=== PATIENT | male | born 1965 | race Caucasian/White ===

== ENCOUNTER 2017-01-10 13:21 | Day surgery (SDC) | payer OTHER ==
[2017-01-10] VITALS (10 sets, daily range): BP systolic 114–136; BP diastolic 68–86; PULSE 75–85; RESP 11–20; O2SAT 91–98
[~2017-01-10] VITALS: Ht 182.9 cm; Wt 74.1 kg
[2017-01-10] MEDS: Lactated Ringer's 1,000 ML IV SCH ×3 (05:00→18:10)
[~2017-01-10 13:21] MED LIST: Clindamycin Inj 600 MG in IV Premix 1 EACH IV SCH; HYDR-4003 PO
[2017-01-10] MEDS ORDERED: Lidocaine PF 1% 30 mL Inj ONE (13:22)
[2017-01-10] MEDS ORDERED: Ondansetron 2 mg/mL 2 mL Inj ONE (13:22)
[2017-01-10] MEDS ORDERED: Dexamethasone 4 mg/mL Inj ONE (13:22)
[2017-01-10] MEDS ORDERED: MetoCLOpramide 5 mg/mL 2 mL Inj ONE (13:22)
[2017-01-10] MEDS ORDERED: HYDROmorphone 2 mg/mL Inj ONE (13:22)
[2017-01-10] MEDS ORDERED: Propofol 10,000 mCg/mL 20 mL Inj ONE (13:22)
[2017-01-10] MEDS ORDERED: fentaNYL-PF 50 mCg/mL 2 mL Inj ONE (13:22)
[2017-01-10] MEDS ORDERED: Succinylcholine Chloride 20 mg/mL 5 mL Inj ONE (13:22)
[2017-01-10] MEDS ORDERED: Clindamycin 600 mg/50 mL D5W Premix IV ONE (14:49)
--- NOTE | 2017-01-10 16:21 | PCM.HPANE ---
Patient Data Surgeon Admitting Provider: Attending Provider:Manjinder Palomo MD Primary Care Physician:Dori Santos Other Provider:Rosa Gonzales Anesthesia Reason for Visit Right Biecps Tendon Rupture Ht/WT & BMI Height (Feet): 6 Height (Inches): 0 Weight (Kilograms): 76.5 Body Mass Index 22.00 Allergies Coded Allergies: Penicillins (Verified Allergy, Unknown, rash, 01/10/17) Past Anesthesia History Anesthesia History: Denies:: Abnormal Airway, Anesthesia Reactions, Difficult Intubation, Fam Anesthesia Reaction Diabetes History Hx Diabetes?: No MRSA MRSA: No Medications Hypertension Medication: No Home Meds Incl Beta Klaudia: No Reported Medications Hydrocodone-Acetaminophen 5-325 mg 1 Each Tablet1 Tablet PO Q8H PRN For Pain Ref 0 01/05/17 History History of ENT Problems?: No HEENT History: Denies:: Abnormal Airway Cataracts Difficult Intubation Dysphagia Glaucoma Hearing Problem (no aides) Sinus Problem TMJ Denture Type: Full- Upper Hx of Heart Problems?: No Cardiovascular History: Denies:: AICD Chest Pain Congestive Heart Failure Coronary Artery Disease Edema Heart Murmur Hypertension Irregular Heartbeat Pacemaker Peripheral Vascular Rheumatic Fever Thrombophlebitis Hx of Respiratory Problem?: Yes Respiratory History: Denies:: Asthma COPD Emphysema Oxygen Administration Pneumonia Pulmonary Embolism Tuberculosis Use of C-PAP Machine Use of Inhalers / NEBS Other History/Comment Chronic tobacco use. No new coughing or SOB Hx Neurologic Problems?: No Neurological History: Denies:: CVA Dementia Dizziness Headaches Multiple Sclerosis Parkinson's Disease Seizures TIA Hx of GI Problems?: Yes Gastrointestinal History: Positive for:: Gastroesphageal Reflux (past hx of) Denies:: Cirrhosis Gall Bladder Disease Gastrointestinal Bleeding Heartburn Hepatitis Hiatal Hernia Liver Disease Rectal Bleeding Hx of Problems?: No Genitourinary History: Denies:: Kidney Stones Urinary Tract Infection Male Hx: Denies:: Prostate Problems Scrotal Mass Testicular Surgery Skin History: Denies:: History Skin Disorders? Pressure Ulcers Hx Musculoskeletal Problems?: Yes Musculoskeletal History: Positive for:: Back Injury (neck issues ) Musculoskeletal Trauma (right biceps tendon current admission problem- DOI ) Osteoarthritis (neck) Denies:: Fibromyalgia Joint Replacement Psycho Social History: Denies:: Anxiety Hx Depression Hx Surgeries?: Yes (rotator cuff tear, tonsil) Hx Any Other Health Problems?: Yes Other History: Denies:: Cancer Thyroid Disease History Blood Transfusions: Positive for:: Accept Blood Products? Denies:: Blood Transfusions Hx Diabetes: No Hx Alcohol Use: YesAlcoholic Drinks Per Day: couple drinks weeklyHx Substance Use: NoHave You Smoked inLast 12 mo: Yes (1/2 pack daily) Stop/Bang S-Snoring: Do You Snore Loudly: No T-Tired: feel tired, fatigued: No O-Obsered: Observed not breath: No P-Blood Pressure: treated: No B- Body Mass Index > 35 kg/m2: No A- Age over 50: Yes N- Neck Large Circumference: No G- Gender Male: Yes DOMINIC Total Score: 2 Risk Assessment Category Category 1A: Patient has history of documented sleep apnea, and HAS NOT received any narcotic, sedative or anesthesia administration during this stay. Category 1B: Patient has history of documented sleep apnea, and HAS received any narcotic , sedative or anesthesia administration during this stay Category 2: Patient has SUSPECTED Obstructive Sleep Apnea, and HAS received any narcotic , sedative or anesthesia administration during this stay. Category 3: Patient has SUSPECTED Obstructive Sleep Apnea and HAS NOT received narcotic, sedative or anesthesia administration during this stay. Category 4: Outpatient in Procedural Areas with known sleep apnea or who screen positive for High Risk via the STOP/BANG questionnaire. Exam Exam Vital Signs Vital Signs Date Time Temp Pulse Resp B/P Pulse Ox O2 Delivery O2 Flow Rate FiO2 01/10/17 13:52 36.5 80 18 135/86 94 Room Air General Appearance: Alert, Oriented X3 HEENT/AIRWAY: MP 2, Neck Movement (FROM), Other (upper dentures) Lungs: Clear to Auscultation, Clear to Percussion Heart: Exam Unremarkable, Regular Rate/Rhythm Meds/Labs/Diagnostics Admission Meds Current Medications Lactated Ringer's (Lr) 1,000 ml @ 120 mls/hr Q8H20M IV Last administered on t 13:44; Start 01/10/17 at 05:00; Stop 01/10/17 at 13:19; Status DC Plan Impression Patient chart reviewed, patient interviewed and anesthestic plan with risks, benefits, and alternatives discussed, and informed consent obtained. NPO Status: 2300 3 ASA Physical Status: ASA2 Mod Systemic Disease Anesthetic Plan: GA, Regional Block (supraclavicular nerve block for post-op pain control) Bene/Risks/Altern/Consents: Yes HP Complete Prior to Induction: Yes Other I discussed nn block with the pt. Surgeon is requesting it for post-op pain control. After discussing r/b/a the pt would like to proceed with a nerve block for post-op pain control, which will be performed by me. Dr. Ellis will then perform the GA for the main anesthetic. R/b/a of GA was discussed with the pt. Hayden Michel MD Jan 10, 2017 16:21
[2017-01-10] MEDS ORDERED: Ketorolac 15 mg/mL Inj IVPUSH ONE (17:45)
--- NOTE | 2017-01-10 18:04 | PCM.ORTHOP ---
Orthopedic Operative Report Date of Service: Jan 10, 2017 Pre Operative Diagnosis right distal biceps rupture Post Operative Diagnosis same Procedure right distal biceps repair Surgeon Surgeon: Manjinder Palomo MD Assistants: Dinora Duong Indication for Procedure right distal biceps repair Findings Right distal biceps repair with 1.5 cm retraction Details of Procedure Operative Indications: Alvin Mendoza is a 51-year-old left hand dominant male who presents with a right distal biceps rupture approximately 2 weeks ago. A clear explanation was given to the patient regarding the condition, the conservative and surgical options. It was emphasized that the risks and benefits of surgery include but are not limited to infection, wound healing problems, damage to adjacent structures such as nerves, blood vessels and tendons, terminal press operator disability and pain, arthritis, hypersensitivity, deep vein thrombosis, pulmonary embolism and loss of limb or life. The likely post operative recovery and the instructions that are to be followed after surgery were also discussed and explained. The patient was invited to ask questions or seek clarification but there were none. The patient voiced understanding of the entire discussion and requested to move forward. Procedure: The patient was seen in preoperative holding and the right side was reconfirmed and marked as the correct side. The patient was taken to the OR and transferred to the OR table without incident. A time-out was performed reconfirming the patients identity, laterality of surgery and proper administration of preoperative antibiotics. After smooth induction of anesthesia the right arm was examined and prepped. After the examination the extremity was prepped and draped in a sterile fashion with 2% Clorhexadine solution. A sterile tourniquet was then applied. The incision was clearly marked out. We paused to reconfirm the procedure and laterality one last time. Incision was made with a #15 blade and subsequent sharp dissection was performed with aid of electrocautery to control the bleeding down to the level of the fascia. Appropriate full thickness skin flaps were subsequently developed. There was notable disruption of distal biceps from the trauma. The interval between the FCR and PT was identified and developed down to the level of the joint capsule. The lateral antebrachial cutaneous nerve was identified and retracted. Recurrent veins were isolated and coagulated with a bipolar electrocautery. The forearm was fully supinated and the area vacated by the ruptured biceps was identified. Using blunt disection and the bipolar the radial tuberosity was exposed until there was good visualization. At this time the biceps tendon was palpated retracted into the upper arm and was delivered out of the wound. The tendon's overall condition was good with frayed edges. The very end was debrided and then whipstitched in a grasping fashion with a Fiberloop. The allowed for a good grasping stitch. Provisionally it appeared that the tendon could be reduced down to the level of the radial tuberosity. The tuberosity was then debrided and a guidepin was placed slightly distal to the exact center of the insertion point. This was checked with Fluoro to ensure correct placement. The near cortex was then reamed with a 8 mm reamer. A cortical button was attached to the end of the suture and the elbow flexed. The button was introduced through the bone tunnel flipped and then appropriate tension was applied to reduce the tendon to the bone. The reduction was secure and ROM was checked demonstrated that the biceps was not under too much tension. A interference screw was selected and inserted The tourniquet was let down and bleeding was controlled. The wound was irrigated copiously with sterile saline solution. Subcutaneous closure was achieved with 2-0 vicryl followed by a running subcuticular 3-0 Stratofix suture. Steri strips were then applied. The wound was then dressed in a sterile fashion and a posterior splint was applied. The patient was awoken gently from anesthesia and transferred to the PACU in stable condition. HEADER SETUP OPERATOR SURGEON: During the operation, the services of physician culture media laboratory assistant were medically indicated and necessary to provide exposure of the operative site for the surgical procedure and to maintain the limb in a proper position to carry out the operation safely and efficiently. Without the qualified journeyman operator assistant being present, it would have extended the operative procedure and made the procedure technically more difficult to perform. Grafts, Implants: Implants-See Implant Record Complications There were no periprocedural complications identified. Condition Stable Anesthetic Administered: GA Catheters: None Output, Estimated Blood Loss: 20 Blood Admin during surgery: No Surgical Cast or Splint: Long Arm Splint, Other Surgical Specimen Removed: No Specimen sent to Pathology: No copies to: Manjinder Palomo MD,Manjinder Perez MD Jan 10, 2017 18:04
--- NOTE | 2017-01-10 18:24 | DRSVH ---
PROCEDURE: X-RAY CHEST ONE VIEW, PORTABLE ([id number]) INDICATIONS: DYSPNEA, ABDOMINAL PAIN TECHNIQUE: One view of the chest was acquired. COMPARISON: None. FINDINGS: Surgical changes and devices: Right shoulder tendon anchor is noted. Lungs and pleura: No pleural effusions or pneumothorax. Lungs are clear. Mediastinum: Mediastinal contours appear normal. Heart size is normal. Bones and chest wall: No suspicious bony lesions. Overlying soft tissues appear unremarkable. IMPRESSION: No acute pulmonary process. Dictated by: Naheed Arriaza M.D. on 01/10/2017 at 18:21 Approved by: Naheed Arriaza M.D. on 01/10/2017 at 18:22
[2017-01-10] MEDS ORDERED: Lactated Ringer's 1,000 ML IV SCH (18:53)
[2017-01-10] MEDS ORDERED: Lactated Ringer's 500 ML IV PRN (18:53)
[2017-01-10] MEDS ORDERED: MetoCLOpramide 5 mg/mL 2 mL Inj IVPUSH PRN (18:55)
[2017-01-10] MEDS ORDERED: Dexamethasone 4 mg/mL Inj IVPUSH PRN (18:55)
[2017-01-10] MEDS ORDERED: Ondansetron 2 mg/mL 2 mL Inj IVPUSH PRN (18:55)
[2017-01-10] MEDS ORDERED: fentaNYL-PF 50 mCg/mL 2 mL Inj IVPUSH PRN (18:55)
[2017-01-10] MEDS ORDERED: Phenylephrine 10,000 mCg/mL Inj IVPUSH PRN (18:55)
[2017-01-10] MEDS ORDERED: EPHEDrine Sulfate 50 mg/mL Inj IVPUSH PRN (18:55)
[2017-01-10] MEDS ORDERED: HYDROmorphone 1 mg/mL Inj IVPUSH PRN (18:55)
[2017-01-10] MEDS ORDERED: Lactated Ringer's 1,000 ML IV ONE (19:30)
[2017-01-10] MEDS ORDERED: Albuterol-Ipratropium 3 mL Inhalation Solution ONE (20:13)
--- NOTE | 2017-01-10 21:05 | NUR ---
Arrival on OSC to 1031 at 2104 via gurney, transfer with slideboard and 3x assist to bed. On 10L via non-rebreather
--- NOTE | 2017-01-10 22:01 | NUR ---
Called report to Pat Nye, transfering pt to rm 2020 at 2204
--- NOTE | 2017-01-11 01:18 | PCM.CHPMED ---
Subjective Date of Service: Jan 11, 2017 Provider requesting consult: Manjinder Palomo MD Primary Physician: Admitting Physician: Primary Care Physician: Dori Santos Attending Physician: Manjinder Palomo MD Chief Complaint: Chief Complaint: Diaphragm hemiparalysis History of Present Illness: Patient is a 51-year-old gentleman who had right bicep tendon repair by Dr. Palomo on 01/10/2017. Part of this anesthesia he underwent a supraclavicular nerve block, after receiving the nerve block on the right side, he reportedly became tach, shortness of breath, diaphoretic, and complained of abdominal discomfort and was restless in his bed. He began to have oxygen desaturations down to 91% on room air which came up to 93 on 2 L nasal cannula. 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 He has been on supplemental oxygen, at time of evaluation was receiving 5 L through oxy mask, and was satting in the low 90s, 90-93% that increased to 96-97% with deep breaths. Additionally patient has significant history for consuming large quantities of alcohol nightly, specifically he drinks between a half to one full fifth of vodka nightly, typically smokes half a pack a day, but states recently he has been smoking a full pack a day, he also smokes marijuana daily, between 1-4 joints. Review of Systems: Constitutional: Reports: Weakness (right upper extremity), Denies: Chills, Fever, Sweats Eyes: Denies: Blurred Vision ENT: Denies: Dysphagia, Hoarseness Neck: Denies: Pain Cardiovascular: Denies: Chest Pain, Edema, Irregular Heart Rate, Palpitations Respiratory: Denies: Cough Gastrointestinal: Denies: Abdominal Pain (resolved at time of evaluation) Neurological: Denies: Dizziness PMH Past Medical History Alcohol abuse Tobacco abuse Marijuana abuse Surgical History Right bicep tendon repair Home Medications Denies any home medications Allergies: Coded Allergies: Penicillins (Verified Allergy, Unknown, rash, 01/10/17) Family History Family History No family history of hypertension, diabetes, coronary artery disease, or cancers. Social History Occupation: warehouse supervisorHx Alcohol Use: YesAlcoholic Drinks Per Day: 0.5 to 1. fifth of vodka a nightHx Substance Use: Yes (marijuana daily)Hx Tobacco Use: Yes Smoking Status: Heavy Tobacco Smoker (half to 1 pack a day) Living Arrangement: with Family Exam Vital Signs Vital Sign - Last Date Time Temp Pulse Resp B/P Pulse Ox O2 Delivery O2 Flow Rate FiO2 01/10/17 22:30 Supplement Oxygen 01/10/17 22:28 81 01/10/17 22:24 36.7 11 127/71 98 6.00 Intake and Output 01/10/17 01/10/17 01/11/17 Cumulative From/Thru 15:00 23:00 07:00 01/05/17 16:48 - 01/11/17 00:14 Intake Total 1200 ml 1200 ml Output Total 20 ml 20 ml Balance 1180 ml 1180 ml Intake IV Total 1200 ml 1200 ml Output Estimated Blood Loss 20 ml 20 ml General: Alert, Oriented X3, Cooperative, No Acute Distress Head: Normal Eyes: PERRLA, EOMI Mouth: Mouth Normal Chest & Lungs: Other (decreased to absent breath sounds and null chest excursion on the right side.) Cardiovascular: Regular Rate/Rhythm, Normal S1, Normal S2, No Murmurs/Rubs/ Gallops Pulses: NL carotid, radial, femoral, DP, PT Abdomen: Non-tender Musculoskeletal: Other (right shoulder is held superiorly compared to left. Right trapezius feels to be in spasm.) Extremities: Other (right arm is in a sling wrapped in surgical bandages.) Lab and Diagnostics X-Rays, CTs and MRIs Portable chest x-ray 01/10/2017 IMPRESSION: No acute pulmonary process. Dictated by: Naheed Arriaza M.D. on 01/10/2017 at 18:21 Personal evaluation of the x-ray demonstrates superiorly elevated right hemidiaphragm. Assessment & Plan Assessment 51-year-old gentleman status post right biceps tendon repair, medical history significant for current alcohol abuse, new complaint of tachypnea, shortness of breath, found to have low O2 sat following nerve block, and physical exam finding and x-rays demonstrating poor chest and diaphragm excursion of the right side. Problems: (1) Phrenic nerve paralysis Plan: Iatrogenic in nature, anticipating resolution as nerve block agents are metabolized. Continue with O2 support, keep patient sitting up. O2 saturation goals between 94 and 99%, with parameters to notify physician if O2 sat drops below 90. Decrease oxygen supplementation as O2 saturation improves. Monitor overnight for worsening desaturation or respiratory compromise. Anesthesiology spoke with patient regarding possibility of intubation should his respiratory condition worsen . Status: Acute ICD Code: G58.8 (2) Alcohol abuse Plan: Given patient's drinking history, it is anticipated he may begin to have withdrawal symptoms this hospitalization. We agree with surgery's plan to treat with CIWA protocol, thiamine. Be conscientious of diazepam as it may suppress respiratory drive in an already compromised respiratory situation. Status: Acute ICD Code: F10.10 (3) Tobacco abuse Plan: Nicotine patches daily. Status: Acute ICD Code: Z72.0 Pain Evaluation: Adequate Pain Control GI Prophylaxis: Not indicated VTE Mechanical Devices: Intermittant Pneumatic CD, Anti-Embolic stockings Resuscitation Status: CPR: Attempt Resuscitation Attending Statement The patient was seen and examined together with house staff on 01/10/2017 and I agree with the history, exam and plan as outlined in the note above. Jayden Boucher DO Jan 11, 2017 01:18 Ekaterina Hensley DO Jan 11, 2017 04:20
[2017-01-11] MEDS: HYDROcodone-APAP 5-325 mg Tablet PO PRN ×3 (01:45→07:32)
[2017-01-11 02:42] VITALS: BP 128/68; PULSE 73; RESP 22; O2SAT 97
--- NOTE | 2017-01-11 05:17 | NUR ---
Resp / Pain Patient arrived to 2020 on 11L nonrebreather. SpO2 99% and oxygen is titrated down to 2L NC. Later in the shift it is decreased to 1L NC with SpO2 of 95%. Lungs are decreased in the bases but equal bilaterally. Patient in no respiratory distress. Patient having pain in his right arm, 2 Vicodin given with no improvement. Toradol improves pain from a 8 to a 5. Fresh ice packs provided, sling in place.
[2017-01-11 07:32] VITALS: BP 122/75; PULSE 67; RESP 19; O2SAT 96
--- NOTE | 2017-01-11 08:18 | PCM.ANEP1 ---
Post Anesthesia Phase 1 PACU Phase 1 Assessment Date of Service: Jan 11, 2017 Vital Signs Vital Signs Date Time Temp Pulse Resp B/P Pulse Ox O2 Delivery O2 Flow Rate FiO2 01/11/17 07:32 36.3 67 19 122/75 96 Room Air 01/11/17 03:00 Supplement Oxygen 01/11/17 02:42 37.0 73 22 128/68 97 Nasal Cannula 2.00 Anesthetic Administered: GA Level of Alertness: Awake, talking PALMA's with Equal Strength: No (brachial plexus block on right) Pain: Yes Pain Scale Score: 0 Nausea or Vomiting: No Oxygen Delivery: Simple Mask Lungs: Diminished, Coarse, Wheezes Summary Patient's pulmonary exam consistent with exam by me prior to OR when seen after his block. Cash Ellis MD Jan 11, 2017 08:18
[2017-01-11] MEDS ORDERED: Thiamine Inj 100 MG in 0.9% Sodium Chloride 100 ML IV SCH (08:30)
[2017-01-11] MEDS ORDERED: Multivit-Miner-Folic Acid-Iron Tablet PO SCH (08:30)
[2017-01-11] MEDS ORDERED: oxyCODONE-Acetamin 5-325 mg Tablet PO PRN (08:40)
[2017-01-11 09:30] LABS: BASOPHILS % (AUTO) 0.1 % (0-3); EOSINOPHILS % (AUTO) 0 % (0-5); MONOCYTES % (AUTO) 11.9 % (4-12); Mean Corpuscular Hemoglobin 34.4 pg (27.0-35.0); Mean Corpuscular Volume 97.2 fL (81-100); Platelet Count 210 bil/L (150-400)
--- NOTE | 2017-01-11 10:11 | PCM.PNORTH ---
Subjective Date of Service: Jan 11, 2017 Visit Information: Reason for Visit Right Biecps Tendon Rupture Surgery/Surgery Date Post-Op Day # 1 Date of Admission: Hospital Day # Subjective Patient states he is feeling better than last night. He states he is having a lot of pain in his arm and shoulder. He states he did not sleep well last night. Patient also states he would like to receive Percocet when he is discharged as Vicodin "does nothing." Nursing states he has been off of oxygen and has had normal oxygen saturation and has had no signs of respiratory distress. Postop General: No Chest Pain Pain Management: PO Objective Exam Objective Patient sitting up in bed Vital Signs and I/O Vital Sign - Last Date Time Temp Pulse Resp B/P Pulse Ox O2 Delivery O2 Flow Rate FiO2 01/11/17 08:18 Simple Mask 01/11/17 07:32 36.3 67 19 122/75 96 01/11/17 02:42 2.00 Intake and Output 01/10/17 01/10/17 01/11/17 Cumulative From/Thru 15:00 23:00 07:00 01/05/17 16:48 - 01/11/17 05:12 Intake Total 1200 ml 1000 ml 2200 ml Output Total 20 ml 1300 ml 1320 ml Balance 1180 ml -300 ml 880 ml Intake Oral 1000 ml 1000 ml IV Total 1200 ml 1200 ml Output Urine Total 1300 ml 1300 ml Estimated Blood Loss 20 ml 20 ml Lab & Micro Results Laboratory Tests Test 01/11/17 09:21 White Blood Count 12.3th/mm3 (3.8-10.1) Red Blood Count 4.22mil/mm3 (4.40-5.80) Hemoglobin 14.5g/dL (13.8-17.2) Hematocrit 41.0% (41.0-50.0) Mean Corpuscular Volume 97.2fL (81-100) Mean Corpuscular Hemoglobin 34.4pg (27.0-35.0) Mean Corpuscular Hemoglobin Concent 35.4% (32.0-37.0) Red Cell Distribution Width 11.4% (12.3-15.4) Platelet Count 210bil/L (150-400) Neutrophils (%) (Auto) 81.0% (40-74) Lymphocytes (%) (Auto) 6.8% (14-46) Monocytes (%) (Auto) 11.9% (4-12) Eosinophils (%) (Auto) 0% (0-5) Basophils (%) (Auto) 0.1% (0-3) Result Diagram: 01/11/17 0921 General Appearance: Alert, Oriented X3, Cooperative, No Acute Distress Extremities: Distal Pulses Palpable, No Compartment Syndrom Noted Postop Sensory Motor: Distal Motor Intact, Movement in Fingers, Distal Sensation Intact, NVI Distally SURGICAL WOUND : Wound Location/Description Perioperative dressing clean, dry and intact Catheters: None Assessment & Plan Impression POD#1 right distal biceps tendon repair Problems: (1) Phrenic nerve paralysis Status: Acute ICD Code: G58.8 (2) Alcohol abuse Status: Acute ICD Code: F10.10 (3) Tobacco abuse Status: Acute ICD Code: Z72.0 Plan Please keep dressing clean dry and intact. Do not remove dressing until follow- up in clinic. You may shower with dressing covered with a plastic bag or saran wrap. Do not get the dressing or wound wet. Do not weight-bear on the affected extremity. Elbow ROM from 30 degrees of extension to 130 degrees of flexion GOALS: Maintain minimal swelling and soft tissue healing Achieve full forearm supination and pronation Patient should perform passive ROM exercises from 30 degrees of extension to 130 degrees of flexion 5-6 times per day for 25 repetitions. Apply ice after exercise sessions. A sling or cuff and collar may be used for the splint or hinged brace respectively. Shoulder ROM exercises are encouraged. You will follow up in clinic in 10-14 days for suture removal, and placement of new Steri-Strips. You will follow-up with me in clinic without x-rays at this time. You will follow-up with my PA at 6 weeks postop and may start weightbearing as tolerated at 6-8 weeks. depending on yor motion and pain level. Please keep the affected extremity elevated when possible. You may use ice and/or heat as needed for comfort (preferably ice during the first 48-72 hours. Please feel free to call with any further questions, comments, and/or concerns. You have been given medications for pain, medication for possible constipation which is a side affect of the pain medications. Please be aware that alcohol and smoking can negatively impact your health and healing from this surgery. Please only take the pain medication as prescribed Resuscitation Status: CPR: Attempt Resuscitation Dinora Duong PA-C Jan 11, 2017 10:11
--- NOTE | 2017-01-11 10:15 | PCM.DIOPOR ---
OP Ortho Discharge Instruction Dates of Hospitalization Date of Discharge: Jan 11, 2017 Providers Admitting Physician: Primary Care Physician: Dori Santos Attending Physician: Mnajinder Palomo MD Diagnosis at Time of Discharge Post operative diagnosis Status post right distal biceps repair Activity Activity-General: No restrictions Right Upper Extremity: Non-weight bearing Dressing and Incisional Care Dressing Care: Keep dressing clean, dry & intact Additional Instructions Discharge Instructions Please keep dressing clean dry and intact. Do not remove dressing until follow- up in clinic. You may shower with dressing covered with a plastic bag or saran wrap. Do not get the dressing or wound wet. Do not weight-bear on the affected extremity. Elbow ROM from 30 degrees of extension to 130 degrees of flexion GOALS: Maintain minimal swelling and soft tissue healing Achieve full forearm supination and pronation Patient should perform passive ROM exercises from 30 degrees of extension to 130 degrees of flexion 5-6 times per day for 25 repetitions. Apply ice after exercise sessions. A sling or cuff and collar may be used for the splint or hinged brace respectively. Shoulder ROM exercises are encouraged. You will follow up in clinic in 10-14 days for suture removal, and placement of new Steri-Strips. You will follow-up with me in clinic without x-rays at this time. You will follow-up with my PA at 6 weeks postop and may start weightbearing as tolerated at 6-8 weeks. depending on yor motion and pain level. Please keep the affected extremity elevated when possible. You may use ice and/or heat as needed for comfort (preferably ice during the first 48-72 hours. Please feel free to call with any further questions, comments, and/or concerns. You have been given medications for pain, medication for possible constipation which is a side affect of the pain medications. Please be aware that alcohol and smoking can negatively impact your health and healing from this surgery. Please only take the pain medication as prescribed Dinora Duong PA-C Jan 11, 2017 10:15
[2017-01-11] MEDS ORDERED: OXYC1TAB24 PO (10:17)
[2017-01-11] MEDS ORDERED: DOCU-41 PO (10:17)
--- NOTE | 2017-01-11 10:43 | PCM.ANEP2 ---
Post Anesthesia Evaluation ASA/CMS Post Anesthesia VS in Patient's Normal Range?: Yes Resp Stable; Airway Patent?: Yes (95% on 2L NC) CV Function & Hydration Stable: Yes Mental Status Recovered?: Yes Pain control Satisfactory?: Yes N/V Control Satisfactory?: Yes Additional Comments Pt looks much better this AM than prior to surgery yesterday. No longer diaphoretic, tachypneic, restless or complaining of abdominal pain. Tolerating PO. Breathing no longer labored. Surgical and hospitalist service has done a remarkable job optimizing the patient to meet discharge criteria as anticipated with this expected overnight admission. Cash Ellis MD Jan 11, 2017 10:43
[2017-01-11 11:04] VITALS: PULSE 78
--- NOTE | 2017-01-11 11:16 | NUR ---
Social Work Note: Screen Note/Discharge Data& Assessment: EMR reviewed. Per pt is medically ready for discharge. SW met with pt and pt at bedside to confirm discharge plan and assess for any unmet needs. Pt was hospitalized for a right biceps tendon rupture. Pt has [employer] and [employer] insurance coverage and sees [facility] for primary care. Pt lives with his in [place] and is independent at baseline. Per pt is medically improved and ready or discharge. Pt transporting pt home. Pt and pt denies any other needs. No other discharge needs identified. Plan: Per pt is medically improved and ready or discharge home via POV. Pt transporting pt home. Pt and pt denies any other needs. No other discharge needs identified. JAVY Riddle
--- NOTE | 2017-01-11 11:36 | PCM.DC.MED ---
Discharge Summary Date of Service Jan 11, 2017 Dates of Hospitalization Date of Hospital Admission January 11, 2017 Date of Discharge: Jan 11, 2017 Providers: Admitting Physician: Primary Care Physician: Dori Santos Attending Physician: Manjinder Palomo MD Diagnosis at Time of Discharge Diagnosis at Time of Discharge 1. Acute hypoxic respiratory failure postoperative. Resolved. 2. Right biceps tendon rupture, status post repair. 3. Alcohol dependence. Consultations Hospitalist service for acute hypoxic respiratory failure Procedures XRay, CTs & MRIs Chest x-ray January 10, Invasive Procedures Operative right biceps tendon repair, per Dr. Palomo Brief History Patient is a 51-year-old gentleman who had right bicep tendon repair by Dr. Palomo on 01/10/2017. Part of this anesthesia he underwent a supraclavicular nerve block, after receiving the nerve block on the right side, he reportedly became tach, shortness of breath, diaphoretic, and complained of abdominal discomfort and was restless in his bed. He began to have oxygen desaturations down to 91% on room air which came up to 93 on 2 L nasal cannula. 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 He has been on supplemental oxygen, at time of evaluation was receiving 5 L through oxy mask, and was satting in the low 90s, 90-93% that increased to 96-97% with deep breaths. Additionally patient has significant history for consuming large quantities of alcohol nightly, specifically he drinks between a half to one full fifth of vodka nightly, typically smokes half a pack a day, but states recently he has been smoking a full pack a day, he also smokes marijuana daily, between 1-4 joints. Hospital Course This patient was taken for a right biceps tendon rupture repair. Postoperatively the patient patient had respiratory direct distress and evidence of acute hypoxic respiratory failure. The patient was moved to the second floor and hospice consult was obtained. He was observed closely on telemetry and treated with supplemental oxygen which was weaned off overnight. On the morning discharge she was at baseline. He has a history of alcohol dependence but denied any evidence of withdrawal or history of withdrawal. It is felt to be medically stable for discharge. Exam Vital Signs (Last) Date Time Temp Pulse Resp B/P Pulse Ox O2 Delivery O2 Flow Rate FiO2 01/11/17 11:04 78 01/11/17 08:18 Simple Mask 01/11/17 07:32 36.3 19 122/75 96 01/11/17 02:42 2.00 Exam Patient was seen and examined on the day of discharge Test 01/11/17 09:21 White Blood Count 12.3th/mm3 (3.8-10.1) Red Blood Count 4.22mil/mm3 (4.40-5.80) Hemoglobin 14.5g/dL (13.8-17.2) Hematocrit 41.0% (41.0-50.0) Mean Corpuscular Volume 97.2fL (81-100) Mean Corpuscular Hemoglobin 34.4pg (27.0-35.0) Mean Corpuscular Hemoglobin Concent 35.4% (32.0-37.0) Red Cell Distribution Width 11.4% (12.3-15.4) Platelet Count 210bil/L (150-400) Neutrophils (%) (Auto) 81.0% (40-74) Lymphocytes (%) (Auto) 6.8% (14-46) Monocytes (%) (Auto) 11.9% (4-12) Eosinophils (%) (Auto) 0% (0-5) Basophils (%) (Auto) 0.1% (0-3) Sodium Level 130mEq/L (134-144) Potassium Level 4.2mEq/L (3.5-5.2) Chloride Level 94mEq/L (97-108) Carbon Dioxide Level 21mmol/L (18-29) Blood Urea Nitrogen 8mg/dL (6-24) Creatinine 0.51mg/dL (0.76-1.27) Estimat Glomerular Filtration Rate 183mL/min (>59) Glucose Level 214mg/dL (60-99) Calcium Level 9.0mg/dL (8.5-10.1) Total Bilirubin 0.7mg/dL (0.0-1.2) Aspartate Amino Transf (AST/SGOT) 29U/L (0-50) Alanine Aminotransferase (ALT/SGPT) 26U/L (0-44) Alkaline Phosphatase 60U/L (25-150) Total Protein 6.9g/dL (6.4-8.4) Albumin 4.1g/dL (3.4-5.0) Discharge Medications As needed Docusate Sodium (Colace) 100 Mg Capsule 100 MG PO BID PRN PRN For Constipation Prescribed by: MAL MAYFIELD oxyCODONE-Acetaminophen 5-325 mg (oxyCODONE-Acetaminophen 5-325 mg) 1 Each Tablet 1 TAB PO Q6H PRN PRN pain Prescribed by: MAL MAYFIELD Followup Plan Disposition: Home, with family Time spent 35 minutes Sánchez Wong MD Jan 11, 2017 11:36
[2017-01-11 11:56] VITALS: BP 122/76; PULSE 67; RESP 19; O2SAT 97
--- NOTE | 2017-01-11 12:17 | NUR ---
discharge Pt AAOx4, pain controlled with new order for PO percocet. Cap refill 2-3 sec to R hand, pt reports sensation in tact to RUE. VSS. SpO2 mid 90s on RA. D/C teaching completed with pt and , both deny questions. Pt d/c'd via w/c and NA-C escort to private car, to drive pt home. All belongings sent with pt upon d/c.
== END 2017-01-11 12:36 | disposition home or self-care (01) ==
LOC: SAS 13:21 → OSC 21:15 → CCU 21:30 → PCC 21:40 → SAS 01-11 12:36
PROVIDERS: ATTEND Orthopaedic Surgery
DX: S46.211A Strain of muscle, fascia and tendon of other parts of biceps, right arm, initial encounter (principal); X50.0XXA Overexertion from strenuous movement or load, initial encounter; Y93.E6 Activity, residential relocation; Y92.59 Other trade areas as the place of occurrence of the external cause; Y99.0 Civilian activity done for income or pay; F17.210 Nicotine dependence, cigarettes, uncomplicated
CPT/HCPCS: 24342; 36415; 71010; 76942; 80053; 85025; J0330; J1100; J1170; J2250; J2405; J2765; J3010; J7120; J7620